=== PATIENT | female | born 1975 | race Asian ===

== ENCOUNTER 2017-11-04 06:45 | Inpatient (IN) | payer OTHER ==
[2017-11-04] MEDS ORDERED: DEXTROSE 5%-LACTATED RINGERS 500 ML IV SCH ×2 (08:10→09:10)
[2017-11-04] MEDS ORDERED: BUTORPHANOL TARTRATE 1 MG/ML VIAL IVPB ONE (10:25)
[2017-11-04] MEDS ORDERED: PROMETHAZINE HCL 25 MG/1 ML VIAL IVPB ONE (10:25)
[2017-11-04] MEDS ORDERED: PROMETHAZINE HCL 25 MG/1 ML VIAL ONE (10:37)
[2017-11-04] MEDS ORDERED: BUTORPHANOL TARTRATE 1 MG/ML VIAL ONE ×2 (10:37)
[2017-11-04 11:07] VITALS: BMI 35.0
[2017-11-04 11:09] LABS: BASO % 0.2 % (0-2.0); EOS % 0.8 % (0-4.5); HEMATOCRIT 35.2 % (32.4-45.2); HEMOGLOBIN 11.6 GM/dL (10.7-15.3); LYMPH % 13.4 % (8-40); MCH 30.9 pg (25.7-33.7); MCHC 33.1 g/dl (32.0-36.0); MEAN CELL VOLUME 93.4 fl (80-96); MEAN PLT VOLUME 9.7 fl (7.5-11.1); MONO % 5.8 % (3.8-10.2); NEUT % 79.8 % (42.8-82.8); PLATELET COUNT 148 K/MM3 (134-434); RBC 3.77 M/mm3 (3.60-5.2); RDW 13.2 % (11.6-15.6); WHITE BLOOD COUNT 8.9 K/mm3 (4.0-10.0)
[2017-11-04] MEDS ORDERED: DEXTROSE 5%-LACTATED RINGERS 1,000 ML IV SCH (11:10)
[2017-11-04 11:20] LABS: INR 0.93 (0.82-1.09); PROTHROMBIN TIME (PATIENT) 10.5 SEC (9.98-11.88)
[2017-11-04] MEDS ORDERED: FENTANYL/BUPIVACAINE/NS/PF - PCEA - 50 ML DISP.SYRIN EP ONE (11:26)
--- NOTE | 2017-11-04 11:32 | HP ---
Past Medical History - Admission History of Present Illness: 41 yo @ 39 6/7 wks by first trimester ultrasound, EDC 11/05/2017 complicated by: 1. Transfer of care at 28 wks, previously from [place] 2. AMA - normal Quad Screen 3. Elevated 1 H GTT, normal 3 H GTT Patient presents with chief complaint of contractions, which began at 0430, which increased in intensity and frequency. She reports movement, denies leakage of fluid or vaginal bleeding History Source: Patient - Past Medical History Cardiovascular: No: HTN Gastrointestinal: No: GERD ...: 2 ...Para: 1 ...Term: 1 ...EDC by [facility]: 11/05/17 Heme/Onc: No: Anemia Endocrine: Yes: Other (GDM prior ) - Past Surgical History Past Surgical History: Yes: Cholecystectomy (laparoscopic cholecystectomy) Hx Myomectomy: No Hx Transabdominal Cerclage: No - Smoking History Smoking history: Never smoked Have you smoked in the past 12 months: No - Alcohol/Substance Use Hx Alcohol Use: No - Social History History of Recent Travel: No Home Medications - Allergies Allergies/Adverse Reactions: Allergies Allergy/AdvReac Type Severity Reaction Status Date / Time amoxicillin Allergy Mild Rash Verified 11/04/17 07:31 apple Allergy Mild Itching Verified 11/04/17 07:31 - Home Medications Home Medications: Ambulatory Orders No Known Home Medication 0 11/04/17 Family Disease History - Family Disease History Family History: Denies Review of Systems - Review of Systems Constitutional: reports: No Symptoms Neck: reports: No Symptoms Cardiovascular: reports: No Symptoms Respiratory: reports: No Symptoms Gastrointestinal: reports: No Symptoms Genitourinary: reports: No Symptoms Neurological: reports: No Symptoms Endocrine: reports: No Symptoms Psychiatric: reports: No Symptoms Physical Exam - Maternity Vital Signs: Vital Signs Temperature 98.0 F 11/04/17 11:01 Pulse Rate 88 11/04/17 11:01 Respiratory Rate 20 11/04/17 11:01 Blood Pressure 116/78 11/04/17 11:01 O2 Sat by Pulse Oximetry (%) Constitutional: Yes: Well Nourished, No Distress, Calm Cardiovascular: Yes: Regular Rate and Rhythm Lungs: Clear to auscultation - Abdominal Exam/OB Fundal Height: 40 Number of Fetuses: Single Presentation: Vertex Contractions: Yes Regularity: Regular Intensity: Mod/Strong Monitor Mode: External Heart Rate (range): 130 Category: I Accelerations: Non-Uniform Decelerations: None - Physical Exam Psychiatric: Yes: Alert, Oriented - Labs Lab Results: CBC, BMP 11/04/17 11:00 PNL: B positive, antibody negative; RPR NR; HBS Ag negative; Rubella Immune, GBS negative, HIV negative; GCT --> GTT WNL Hemorrhage Risk Assessment - Risk Factors Medium Risk Factors: Yes: None High Risk Factors: Yes: None Risk Score: 1 Risk Level: Medium Risk Assessment/Plan 41 yo @ 39 6/7 wks active labor 1. Admit to L&D, Consents reviewed and signed 2. GBS neagtive 3. Category I FHT 4. Desires epidrual for pain control 5. Will proceed with expectant management
[2017-11-04] MEDS ORDERED: ELECTROLYTE-148 SOLN 500 ML IV ONE (11:33)
[2017-11-04] MEDS ORDERED: ELECTROLYTE-148 SOLN 1,000 ML IV SCH (11:45)
[2017-11-04] MEDS ORDERED: NALOXONE HCL 0.4 MG/ML VIAL IVPUSH PRN (12:33)
[2017-11-04 12:35] LABS: CHLORIDE 109 mmol/L (98-107); POTASSIUM 3.7 mmol/L (3.5-5.1); SODIUM 141 mmol/L (136-145)
[2017-11-04 12:39] LABS: ANION GAP 12 (8-16); BLOOD UREA NITROGEN 10 mg/dL (7-18); CALCIUM 8.2 mg/dL (8.5-10.1); CO2 20 mmol/L (21-32); GLUCOSE,RANDOM 114 mg/dL (74-106)
[2017-11-04 12:41] LABS: CREATININE 0.5 mg/dL (0.55-1.02)
[2017-11-04] MEDS ORDERED: FENTANYL/BUPIVACAINE/NS/PF - PCEA - 50 ML DISP.SYRIN EP SCH (12:45)
--- NOTE | 2017-11-04 12:51 | PN ---
Ante-Partal Exam - Subjective Subjective: patient reports comfortable s/p epidural Vital Signs: Vital Signs Temperature 98.0 F 11/04/17 11:01 Pulse Rate 88 11/04/17 11:01 Respiratory Rate 20 11/04/17 11:01 Blood Pressure 116/78 11/04/17 11:01 O2 Sat by Pulse Oximetry (%) Bleeding: No Headache: No Visual changes: No Right upper quadrant pain: No - Contractions Contractions: Yes Regularity: Regular Intensity: Unaware - Exam during Labor Heart Rate: 130 Variability: Moderate Category: I Monitor Accelerations: Present Monitor Decelerations: None Exam: Vaginal Dilatation (cm): 8 Effacement (%): 80 Amniotic Membrane Status: Ruptured (clear fluid, AROM) Amniotic Fluid: Clear Presentation: Vertex Station: -2 - Intrapartum Hemorrhage Risk Medium Risk Factors: None High Risk Factors: None Risk Score: 0 Risk Level: Low Risk - Assessment/Plan Assessment/Plan: 41 yo , active labor 1. Good cervical change 2. Patient comfortable s/p epidural 3. GBS negative 4. Will proceed with expectant management, anticipate vaginal delivery
[2017-11-04] MEDS ORDERED: OXYTOCIN 20 UNITS in 0.9% NS 20 UNIT/1,000 ML INFUS.BAG IV ONE (15:00)
[2017-11-04] MEDS ORDERED: METHYLERGONOVINE MALEATE 0.2 MG/1 ML AMP IM PRN (15:29)
[2017-11-04] MEDS ORDERED: BISACODYL 10 MG SUPP.RECT RC PRN (15:29)
[2017-11-04] MEDS ORDERED: WITCH HAZEL 50% (TUCKS) 40 PAD/JAR PAD TP PRN (15:29)
[2017-11-04] MEDS ORDERED: BENZOCAINE 28 GM HEMORRHOIDAL OINTMENT TP PRN (15:29)
[2017-11-04] MEDS ORDERED: BENZOCAINE 20% 57 GM BOTTLE TP PRN (15:29)
[2017-11-04] MEDS ORDERED: OXYTOCIN 20 UNITS in 0.9% NS 20 UNIT/1,000 ML INFUS.BAG IV SCH (15:30)
--- NOTE | 2017-11-04 15:32 | PN ---
Delivery - Delivery Vaginal Delivery: No Problems Type of Anesthesia: Epidural Episiotomy/Laceration: Midline, Periurethral Extnsion/lac, 2nd degree EBL (cc): 300 Delivery, Single - Stages of Labor Date 1st Stage Initiatied: 11/04/17 Time 1st Stage Initiated: 04:30 Date 2nd Stage Initiated: 11/04/17 Time 2nd Stage Initiated: 14:50 Date of Delivery: 11/04/17 Time of Delivery: 15:06 Date Placenta Delivered: 11/04/17 Time Placenta Delivered: 15:18 Placenta: Yes: Spontaneous - Condition of Pump Erector/Programmer Analyst Present: No Infant Gender: Female Position: Left, OA Total Hours ROM (Hrs/Mins): 2 hours 38 minutes - 1 Minute Total Score: 9 5 Minutes Total Score: 10 - [facility] Feeding Plan Initial Plan: Elected not to breastfeed exclusively throughout hospitalization Remarks - Remarks Remarks: Patient progressed to fully dilated and at 1506 via delivered a viable female infant in ERIC position, APGARs 9,10. Weight and length unknown at this time. Head delivered spontaneously followed by shoulders and body without difficulty. Infant with spontaneous cry and placed on mother's abdomen. Nose and mouth was bulb suctioned. Cord was clamped and cut. Perineum and vagina examined, a second degree perineal and left parauretheral laceration was noted and repaired in the usual fashion. Rectal exam revealed no sutures in rectum. Placenta was delivered spontaneously and intact. 20 units of pitocin in 1 L IVF was given. All counts correct x 2. Mother and stable in LDR. EBL 300cc.
[2017-11-04] MEDS: FERROUS SO4 325 MG TABLET (FP) PO SCH (17:19)
[2017-11-04] MEDS: IBUPROFEN 600 MG TABLET (FP) PO PRN (20:57)
[2017-11-05] MEDS: ACETAMINOPHEN 325 MG TABLET (FP) PO PRN ×2 (07:58→14:57)
[2017-11-05] MEDS: FERROUS SO4 325 MG TABLET (FP) PO SCH ×3 (07:58→17:32)
[2017-11-05] MEDS: IBUPROFEN 600 MG TABLET (FP) PO PRN ×2 (08:00→14:56)
--- NOTE | 2017-11-05 08:24 | PN ---
Post Progress Note - Subjective Subjective: Patient without acute complaints. Reports tolerating oral intake without nausea or vomiting. Ambulating without dizziness. Denies fevers or chills. Pain well controlled with oral pain medication. without difficulty. Passing flatus. Post Day: 1 Type of Delivery: Vital Signs: Vital Signs Temperature 98.0 F 11/05/17 06:00 Pulse Rate 75 11/05/17 06:00 Respiratory Rate 20 11/05/17 06:00 Blood Pressure 110/75 11/05/17 06:00 O2 Sat by Pulse Oximetry (%) 100 11/04/17 16:30 Breast Exam: Yes: Soft Uterus: Yes: Fundus Firm, Fundus below umbilicus Abdomen/GI: Yes: Abdomen soft, Passing flatus, Tolerating PO. No: Tender Lochia: Yes: Serosa Lochia, amount: Small Extremities: Yes: Calves non-tender, Edema (+1) Perineum: Yes: Intact Activity: Ambulating - Labs Labs: CBC WBC 8.9 K/mm3 (4.0-10.0) 11/04/17 11:00 RBC 3.77 M/mm3 (3.60-5.2) 11/04/17 11:00 Hgb 11.6 GM/dL (10.7-15.3) 11/04/17 11:00 Hct 35.2 % (32.4-45.2) 11/04/17 11:00 MCV 93.4 fl (80-96) 11/04/17 11:00 MCH 30.9 pg (25.7-33.7) 11/04/17 11:00 MCHC 33.1 g/dl (32.0-36.0) 11/04/17 11:00 RDW 13.2 % (11.6-15.6) 11/04/17 11:00 Plt Count 148 K/MM3 (134-434) 11/04/17 11:00 MPV 9.7 fl (7.5-11.1) 11/04/17 11:00 Neutrophils % 79.8 % (42.8-82.8) 11/04/17 11:00 Lymphocytes % 13.4 % (8-40) 11/04/17 11:00 Monocytes % 5.8 % (3.8-10.2) 11/04/17 11:00 Eosinophils % 0.8 % (0-4.5) 11/04/17 11:00 Basophils % 0.2 % (0-2.0) 11/04/17 11:00 Assessment/Plan 41 yo PPD # 1 s/p , afebrile, vital signs stable, doing well 1. Continue routine care. 2. Follow up AM CBC 3. Rh positive status, no rhogam indicated. 4. Encourage ambulation 5. Continue oral pain medication 6. Anticipate discharge home day #2
[2017-11-05] MEDS ORDERED: TUBERCULIN PPD 5 TU/0.1ML SYRINGE (IN PATIENT USE ONLY) ID ONE (09:00)
[2017-11-05 09:14] LABS: BASO % 0.3 % (0-2.0); EOS % 0.6 % (0-4.5); HEMATOCRIT 37.7 % (32.4-45.2); HEMOGLOBIN 12.4 GM/dL (10.7-15.3); MCH 31.2 pg (25.7-33.7); MCHC 32.8 g/dl (32.0-36.0); MEAN CELL VOLUME 95.2 fl (80-96); MEAN PLT VOLUME 10.1 fl (7.5-11.1); MONO % 3.8 % (3.8-10.2); NEUT % 81.3 % (42.8-82.8); PLATELET COUNT 162 K/MM3 (134-434); RBC 3.96 M/mm3 (3.60-5.2); RDW 13.4 % (11.6-15.6)
[2017-11-05] MEDS: PRENATAL VITAMINS W/ FOLIC ACID TABLET (FP) PO SCH (09:27)
[2017-11-05] MEDS ORDERED: FLU VACC QS2017-18 36MOS UP/PF 60 MCG/0.5 ML SYRINGE IM ONE (14:00)
[2017-11-05] MEDS ORDERED: DIPHTH,PERTUSS(ACELL),TET 0.5 ML DISP.SYRIN IM ONE (14:00)
[2017-11-05] MEDS ORDERED: SENNOSIDES/DOCUSATE COMBO (SENNA PLUS) TABLET (UD) PO PRN (22:00)
[2017-11-06] MEDS: IBUPROFEN 600 MG TABLET (FP) PO PRN ×3 (03:07→10:34)
[2017-11-06] MEDS: ACETAMINOPHEN 325 MG TABLET (FP) PO PRN ×3 (03:07→10:33)
--- NOTE | 2017-11-06 05:26 | DS ---
Physical Exam-PSYCHOLOGY LECTURER Vital Signs: Vital Signs Temperature 98.1 F 11/05/17 22:00 Pulse Rate 82 11/05/17 22:00 Respiratory Rate 20 11/05/17 22:00 Blood Pressure 121/65 11/05/17 22:00 O2 Sat by Pulse Oximetry (%) 100 11/04/17 16:30 Constitutional: Yes: Well Nourished, No Distress, Calm Eyes: Yes: WNL, Conjunctiva Clear, EOM Intact HENT: Yes: WNL, Atraumatic, Normocephalic Neck: Yes: WNL, Supple, Trachea Midline Cardiovascular: Yes: WNL, Regular Rate and Rhythm Respiratory: Yes: WNL, Regular, CTA Bilaterally Gastrointestinal: Yes: WNL ...Rectal Exam: Yes: WNL Renal/: Yes: WNL ....Post : Yes: Uterus firm, Uterus non-tender, Slight lochia rubra Breast(s): Yes: WNL Musculoskeletal: Yes: WNL Extremities: Yes: WNL Edema: No Integumentary: Yes: WNL Neurological: Yes: WNL, Alert, Oriented ...Motor Strength: WNL Psychiatric: Yes: WNL, Alert, Oriented Labs: CBC, BMP 11/05/17 08:00 11/04/17 11:00 Delivery - Delivery Vaginal Delivery: No Problems, Spontaneous Type of Anesthesia: Epidural Episiotomy/Laceration: Midline, Periurethral Extnsion/lac, 2nd degree EBL (cc): 300 Delivery, Single - Stages of Labor Date 1st Stage Initiatied: 11/04/17 Time 1st Stage Initiated: 04:30 Date 2nd Stage Initiated: 11/04/17 Time 2nd Stage Initiated: 14:50 Date of Delivery: 11/04/17 Time of Delivery: 15:06 Time Placenta Delivered: 15:18 Placenta: Yes: Spontaneous - Condition of Infant Box Blank Machine Feeder/Vehicle Inspector Present: No Gender: Female Weight: 7 lb 7 oz Position: Left, OA Total Hours ROM (Hrs/Mins): 2 hours 38 minutes - 1 Minute Total Score: 9 5 Minutes Total Score: 10 - [place] Feeding Plan Initial Plan: Elected not to breastfeed exclusively throughout hospitalization Discharge Summary Procedures: Principal: Hospital Course: no complication - Instructions Referrals: Kaur Cevallos MD [Staff Physician] - - Home Medications Comprehensive Discharge Medication List: Ambulatory Orders No Known Home Medication 0 11/04/17 Ibuprofen [Motrin -] 600 mg PO QID #28 tablet 11/05/17
[2017-11-06] MEDS: FERROUS SO4 325 MG TABLET (FP) PO SCH (07:27)
[2017-11-06 09:11] VITALS: BP 114/80; PULSE 80; TEMP 98
[2017-11-06] MEDS: PRENATAL VITAMINS W/ FOLIC ACID TABLET (FP) PO SCH (10:28)
== END 2017-11-06 11:45 | disposition home or self-care (01) | DRG 560 ==
LOC: JDEL 06:45 → JLDR 10:25 → J3W 16:26
PROVIDERS: ADMIT Obstetrics & Gynecology; ATTEND Obstetrics & Gynecology
PROC: 10E0XZZ Delivery of Products of Conception, External Approach (ICD-10-PCS; principal; 2017-11-04)
PROC: 0W8NXZZ Division of Female Perineum, External Approach (ICD-10-PCS; 2017-11-04)
PROC: 0KQM0ZZ Repair Perineum Muscle, Open Approach (ICD-10-PCS; 2017-11-04)
DX: O70.1 Second degree perineal laceration during delivery (principal); Z3A.39 39 weeks gestation of pregnancy; Z37.0 Single live birth
CPT/HCPCS: 36415; 59409; 80048; 85025; 85610; 85730; 86593; 86850; 86900; 86901; 90686; 90715